=== PATIENT | male | born 1965 | race Native Hawaiian/Other Pacific Islander ===

== ENCOUNTER 2016-02-18 14:37 | Outpatient (CLI) | payer OTHER ==
[~2016-02-18 14:37] MED LIST: ASA LO-DOSE81 MG PO; BENZ100C8 PO; CETI10TA PO; CETRAXAL0.2 % OT; DIOVAN HCT160 MG/25 PO; LEVAQUIN500 MG OR; LEVO500T PO; PANT40TA PO
== END 2016-02-18 19:56 | disposition home or self-care (01) ==
LOC: LAB 14:37
DX: I10 Essential (primary) hypertension (principal)
CPT/HCPCS: 36415; 82384

== ENCOUNTER 2016-02-20 12:51 | Outpatient (CLI) | payer OTHER | END 2016-02-20 13:51 | disposition home or self-care (01) | LOC: LAB 12:51 | DX: I10 Essential (primary) hypertension (principal) | CPT/HCPCS: 82382; 84585 ==

== ENCOUNTER 2017-04-09 12:46 | Outpatient (CLI) | payer OTHER ==
[2017-04-09 13:28] LABS: PLATELET COUNT 238 K/uL (142-355)
[2017-04-09 13:48] LABS: POTASSIUM 3.6 mmol/L (3.6-5.2)
== END 2017-04-09 22:00 | disposition home or self-care (01) ==
LOC: LAB 12:46 → LABW 12:46
PROVIDERS: Nurse Practitioner Family
DX: Z00.00 Encounter for general adult medical examination without abnormal findings (principal); I10 Essential (primary) hypertension; K21.9 Gastro-esophageal reflux disease without esophagitis; R53.82 Chronic fatigue, unspecified; R53.81 Other malaise; R00.2 Palpitations; E55.9 Vitamin D deficiency, unspecified; E78.00 Pure hypercholesterolemia, unspecified; R79.89 Other specified abnormal findings of blood chemistry
CPT/HCPCS: 80053; 80061; 82306; 82607; 83036; 83880; 84153; 84402; 84403; 84436; 84443; 85027; 85651; 86140